=== PATIENT | female | born 1945 | race Caucasian/White ===

== ENCOUNTER 2016-05-27 08:13 | Day surgery (SDC) | payer MEDICARE ==
[~2016-05-27] VITALS: Ht 157.5 cm; Wt 112.1 kg
[2016-05-27] VITALS (12 sets, daily range): BP systolic 128–158; BP diastolic 64–78; PULSE 65–70; RESP 16–25; O2SAT 91–97
[~2016-05-27 08:13] MED LIST: ALBU8.5H2 INHALATION; BECL8.7A6 INHALATION; DEP500A PO; ERGO2000 PO; GABA-502 PO; HYDR25TA4 PO; IPRA0.2S51 IH; Lactated Ringer's 1,000 ML IV ONE; MELO-259 PO; METO100T3 PO; METO50TA3 PO; OXYB10TA PO; SPIR50TA2 PO; TROS60CA4 PO
[2016-05-27] MEDS ORDERED: fentaNYL-PF 50 mCg/mL 2 mL Inj ONE (08:14)
[2016-05-27] MEDS ORDERED: Lidocaine PF 1% 30 mL Inj ONE (08:14)
[2016-05-27] MEDS ORDERED: Dexamethasone 4 mg/mL Inj ONE (08:14)
[2016-05-27] MEDS ORDERED: Ondansetron 2 mg/mL 2 mL Inj ONE (08:14)
[2016-05-27] MEDS ORDERED: Propofol 10,000 mCg/mL 20 mL Inj ONE (08:14)
[2016-05-27] MEDS ORDERED: Succinylcholine Chloride 20 mg/mL 5 mL Inj ONE (08:14)
[2016-05-27] MEDS ORDERED: Phenylephrine/NS 100 mCg/mL 10 mL Syringe IVPUSH ONE (08:14)
[2016-05-27] MEDS ORDERED: Lactated Ringer's 1,000 ML IV SCH (09:23)
[2016-05-27] MEDS ORDERED: Lactated Ringer's 500 ML IV PRN (09:23)
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
[2016-05-27] MEDS ORDERED: hydrALAZINE 20 mg/mL Inj IVPUSH PRN (09:25)
[2016-05-27] MEDS ORDERED: EPHEDrine Sulfate 50 mg/mL Inj IVPUSH PRN (09:25)
[2016-05-27] MEDS ORDERED: MetoCLOpramide 5 mg/mL 2 mL Inj IVPUSH PRN (09:25)
[2016-05-27] MEDS ORDERED: Dexamethasone 4 mg/mL Inj IVPUSH PRN (09:25)
[2016-05-27] MEDS ORDERED: Ondansetron 2 mg/mL 2 mL Inj IVPUSH PRN (09:25)
[2016-05-27] MEDS ORDERED: Phenylephrine 10,000 mCg/mL Inj IVPUSH PRN (09:25)
[2016-05-27] MEDS ORDERED: Atropine 0.4 mg/mL Inj IVPUSH PRN (09:25)
[2016-05-27] MEDS ORDERED: fentaNYL-PF 50 mCg/mL 2 mL Inj IVPUSH PRN (09:25)
[2016-05-27] MEDS ORDERED: HYDROmorphone 1 mg/mL Inj IVPUSH PRN (09:25)
[2016-05-27] MEDS ORDERED: Labetalol 5 mg/mL 4 mL Inj IV PRN (09:25)
[2016-05-27] MEDS ORDERED: Albuterol-Ipratropium 3 mL Inhalation Solution NEB PRN (09:25)
[2016-05-27] MEDS ORDERED: Lidocaine 2%-Epi 1:100,000 20 mL Inj INFILTRATE ONE (09:58)
[2016-05-27] MEDS ORDERED: Ropivacaine-PF 0.5% 30 mL Inj INFILTRATE ONE (10:15)
--- NOTE | 2016-05-27 10:33 | PCM.ANEP1 ---
Post Anesthesia Phase 1 PACU Phase 1 Assessment Date of Service: May 27, 2016 Vital Signs Vital Signs Date Time Temp Pulse Resp B/P Pulse Ox O2 Delivery O2 Flow Rate FiO2 05/27/16 10:25 65 22 152/70 95 Simple Mask 8 05/27/16 10:24 36.1 65 23 158/72 94 Simple Mask 8 05/27/16 09:08 CPAP/BIPAP 05/27/16 08:40 36.8 66 16 154/78 97 Room Air Anesthetic Administered: GA Level of Alertness: Sleepy, easy to arouse ALANIZ's with Equal Strength: Yes Pain: No Nausea or Vomiting: No Airway Device: Oralpharangeal Airway Oxygen Delivery: Simple Mask Lungs: Normal Air Movement Douglas Stock MD May 27, 2016 10:33
[2016-05-27] MEDS ORDERED: Ketorolac 15 mg/mL Inj IVPUSH ONE (10:35)
[2016-05-27] MEDS ORDERED: oxyCODONE-Acetamin 5-325 mg Tablet PO PRN (10:35)
--- NOTE | 2016-05-27 11:02 | PCM.ANEP2 ---
Post Anesthesia Evaluation ASA/CMS Post Anesthesia Date of Service: May 27, 2016 VS in Patient's Normal Range?: Yes Resp Stable; Airway Patent?: Yes CV Function & Hydration Stable: Yes Mental Status Recovered?: Yes Pain control Satisfactory?: Yes N/V Control Satisfactory?: Yes Douglas Stock MD May 27, 2016 11:02
[2016-05-27] MEDS ORDERED: Lactated Ringer's 1,000 ML IV ONE (11:13)
--- NOTE | 2016-05-27 20:38 | OP ---
[address] [address] OPERATIVE REPORT PATIENT: ERASMO RICKS : 1945 MR#: [id number] ADMIT: 05/27/2016 JOB ID: [id number] DATE OF SURGERY: 05/27/2016 PREOPERATIVE DIAGNOSIS(ES): Left knee torn medial meniscus. POSTOPERATIVE DIAGNOSIS(ES): Left knee torn medial meniscus. PROCEDURE: Left knee video arthroscopy with partial medial meniscectomy. SURGEON: Juan Antonio Cormier DO. ANESTHESIA: LMA general. INDICATIONS: The patient is a 70-year-old female who injured her left knee about two years ago and her pain progressively worsened. She had an MRI performed which demonstrated torn medial meniscus and wished to proceed with a knee scope. We discussed the risks, benefits, and possible complications of surgery. All questions were answered and she wished to proceed. PROCEDURE IN DETAIL: The patient was brought to the operating room. She was given a preoperative LMA general anesthetic. The left lower extremity was sterilely prepped and draped. An incision was made over the anterolateral knee at the level of the joint line and the blunt trocar was introduced. Inspection was undertaken. She was found to have a tear along the medial meniscus. She was also noted to have degenerative changes in the medial compartment with some C3 changes on the medial femoral condyle and medial tibial plateau. Her meniscus was trimmed back to a stable base with a combination of biters and shaver. Her ACL was found to be intact. Her lateral compartment was in excellent condition. She was also noted to have some impinging synovium in the patellofemoral joint which was resected. The scope was then removed and the portals were closed with interrupted nylon suture. Naropin was added as an adjunct local anesthetic. Sterile dressings were applied. Patient tolerated the procedure well. Blood loss was minimal. POSTOPERATIVE PROTOCOL: Have the patient weightbear to tolerance. Use crutches as needed. Ice and elevate and follow up in two weeks or sooner if needed. She was given a prescription for Percocet as needed for pain.
== END 2016-05-27 23:59 | disposition home or self-care (01) ==
LOC: SAS 08:13
PROVIDERS: ATTEND Orthopaedic Surgery
DX: M23.204 Derangement of unspecified medial meniscus due to old tear or injury, left knee (principal); M25.862 Other specified joint disorders, left knee; I10 Essential (primary) hypertension; J45.909 Unspecified asthma, uncomplicated; G47.33 Obstructive sleep apnea (adult) (pediatric); Z79.82 Long term (current) use of aspirin; M23.8X2 Other internal derangements of left knee; M23.304 Other meniscus derangements, unspecified medial meniscus, left knee
CPT/HCPCS: 29881; J0330; J1100; J2250; J2370; J2405; J2795; J7120